=== PATIENT | male | born 2005 | race Caucasian/White ===

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

== ENCOUNTER 2023-02-16 11:36 | Emergency (ER) | payer MEDICAID, OTHER ==
[2023-02-16 11:56] VITALS: BP 141/83
--- NOTE | 2023-02-16 12:51 | ED Physician Documentation ---
History of Present Illness - Stated complaint Stated Complaint: LOWER BACK PX,BLEEDING - Chief complaint Chief Complaint: General - Additonal information Additional information: 17-year-old male presents emergency department for evaluation of a pilonidal cyst. Reports swelling began about 10 days ago, However he states that about 6 weeks ago he noticed a sore in this area. He went to a local walk-in clinic and was told he had a pilonidal cyst and was told that if it got worse to come to the ER. It was not drained. No antibiotics were initiated. States he woke up this morning and found bleeding in this area thus he presents here. No fevers. Review of Systems Skin: reports: Lesions PD PAST MEDICAL HISTORY - Past Medical History Cardiovascular: None Respiratory: Asthma Neuro: None Endocrine/Autoimmune: None GI: Chronic constipation : None HEENT: None Psych: Depression, Panic attacks Musculoskeletal: None Derm: Eczema - Past Surgical History Past Surgical History: No - Present Medications Home Medications: Ambulatory Orders Medication Instructions Recorded Confirmed Doxycycline Hyclate 100 mg PO BID #14 cap 02/16/23 Mupirocin 2% Oint [Bactroban 2% 1 applic TOP BID #22 gm 02/16/23 Oint] - Allergies Allergies/Adverse Reactions: Allergies Allergy/AdvReac Type Severity Reaction Status Date / Time tree nuts Allergy Severe Respiratory Uncoded 02/27/21 04:18 - Social History Does the pt smoke?: No Smoking Status: Never smoker Does the pt drink ETOH?: No Does the pt have substance abuse?: No - Immunizations Immunizations are current?: Yes - POLST Patient has POLST: No PD ED PE NORMAL - Respiratory Respiratory: Clear bilaterally - Abdomen Abdomen: Normal bowel sounds, Soft, Non tender, Non distended - Derm Derm: Other (Just to the left of the gluteal cleft is a raised round lesion well circumcised border with a centralized cyst appearing structure. Small amount of serous drainage. No surrounding erythema or underlying fluctuance. Lesion measures 3 mm) Results - Vitals Vitals: Vital Signs - 24 hr 02/16/23 11:41 Temperature 36.8 C Heart Rate 68 Respiratory 20 Rate Blood Pressure 141/83 H O2 Saturation 98 Oxygen O2 Source Room air PD Medical Decision Making - ED course Complexity details: d/w patient ED course: Well-appearing 17-year-old male presents emergency department for evaluation of about 6 weeks lesion just to the left of his gluteal cleft that measures about 3 mm. It is raised well-circumscribed but the central area of the lesion has an opening that is mucoid with some serous drainage. Clinically it does not appear to have abscess-like features or any evidence of surrounding cellulitis. It also is not behaving as a pilonidal cyst would. I discussed with patient that I felt a short course of antibiotics was appropriate as well as antibiotic ointment/Bactroban. If not markedly better patient may benefit from referral to dermatology for possible biopsy. Patient is agreeable to this plan. The usual emergent return precautions were discussed. Departure - Departure Disposition: Home, Self Care Clinical Impression: Skin lesion Condition: Stable Record reviewed to determine appropriate education?: Yes Prescriptions: Mupirocin 2% Oint [Bactroban 2% Oint] 1 applic TOP BID #22 gm Doxycycline Hyclate 100 mg PO BID #14 cap Comments: Juan Daniel as discussed at the bedside you do have a skin lesion just to the left of your gluteal cleft. It is not behaving in a way that pilonidal cyst typically do though it is possible that this is a very small 1. I am going to start you on a short course of antibiotics, doxycycline, that you will take twice daily for the next week. While on this antibiotic avoid sun exposure and use sunscreen when outside. I would also like you to apply the antibiotic ointment to this lesion twice daily after applying a warm compress to the lesion for 10 minutes twice daily I would expect that this starts to get better over the next several days. If not improving as anticipated or worsening you can return to the ER. However if you continue to have this small lesion that fails to heal it may benefit you to be referred to dermatology for further evaluation and possible biopsy. Therefore please discuss this ED visit with your primary care doctor as soon as possible.
== END 2023-02-16 13:04 | disposition home or self-care (01) ==
LOC: ED 11:36
DX: L98.9 Disorder of the skin and subcutaneous tissue, unspecified (principal)
CPT/HCPCS: 99282; 99283

== ENCOUNTER 2023-03-06 16:15 | Outpatient (CLI) | payer OTHER ==
[2023-03-06 21:34] LABS: BASOPHILS # (AUTO) 0.1 10^3/uL (0.0-0.1); BASOPHILS % (AUTO) 0.5 %; EOSINOPHILS # (AUTO) 0.1 10^3/uL (0.0-0.7); EOSINOPHILS % (AUTO) 1.1 %; HCT - HEMATOCRIT 47.2 % (42.0-52.0); HGB - HEMOGLOBIN 15.9 g/dL (14.0-18.0); LYMPHOCYTES # (AUTO) 2.7 10^3/uL (1.5-3.5); LYMPHOCYTES % (AUTO) 24.7 %; MEAN CORPUSCULAR HEMOGLOBIN 28.9 pg (27.0-31.0); MEAN CORPUSCULAR HGB CONC 33.7 g/dL (32.0-36.0); MEAN CORPUSCULAR VOLUME 85.8 fL (80.0-94.0); MEAN PLATELET VOLUME 11.7 fL (7.4-11.4); MONOCYTES # (AUTO) 0.7 10^3/uL (0.0-1.0); NEUTROPHILS # (AUTO) 7.3 10^3/uL (1.5-6.6); NEUTROPHILS % (AUTO) 67.4 %; PLT - PLATELET COUNT 307 10^3/uL (130-450); RED CELL DISTRIBUTION WIDTH 12.9 % (12.0-15.0); WHITE BLOOD COUNT 10.8 x10^3/uL (4.8-10.8)
[2023-03-06 21:58] LABS: THYROID STIMULATING HORMONE 0.66 uIU/mL (0.34-5.60)
[2023-03-06 21:59] LABS: ALBUMIN 4.8 g/dL (3.2-5.5); ALBUMIN/GLOBULIN RATIO 1.8 (1.0-2.2); BILIRUBIN,TOTAL 0.8 mg/dL (0.2-1.0); CALCIUM 10.4 mg/dL (8.5-10.3); POTASSIUM 3.7 mmol/L (3.5-4.5); TOTAL PROTEIN 7.5 g/dL (6.4-8.9)
[2023-03-06 22:37] LABS: TROPONIN I HIGH SENSITIVITY 3.8 ng/L (2.3-19.7)
== END 2023-03-06 16:30 | disposition home or self-care (01) ==
LOC: LAB.N 16:15
PROVIDERS: ATTEND Physician Assistant Medical
DX: R07.9 Chest pain, unspecified (principal)
CPT/HCPCS: 36415; 80053; 84443; 84484; 85025; 85379

== ENCOUNTER 2023-10-09 23:27 | Outpatient (CLI) | payer BC | END 2023-10-09 23:28 | disposition critical access hospital (66) | LOC: EMS 23:27 | DX: R10.31 Right lower quadrant pain (principal); R10.32 Left lower quadrant pain; R19.7 Diarrhea, unspecified | CPT/HCPCS: A0425; A0427 ==

== ENCOUNTER 2023-10-09 23:49 | Emergency (ER) | payer BC, OTHER ==
--- NOTE | 2023-10-10 00:57 | ED Physician Documentation ---
PD HPI ABD PAIN - Stated complaint Stated Complaint: ABD PX - Chief complaint Chief Complaint: Abd Pain - History obtained from History obtained from: Patient - Additional information Additional information: BIBA for near-syncope. Patient says he has been constipated "for past couple of days". Tonight, while straining to have BM on toilet, he had sudden onset of lightheadedness, diaphoresis, abdominal cramping, sensation that he was going to pass out. He did not lose consciousness. He called 911 and while waiting for EMS he says he checked his own pulse manually (radial artery) and he counted 14 beats/minute. He was already feeling much improved by the time EMS arrived and is asymptomatic on ED arrival. He denies h/o similar symptoms (of near-syncope; has had constipation in the past). He also no longer feels constipated, as he was able to have large bowel movement before EMS arrived. Review of Systems Constitutional: reports: Sweats. denies: Fever Cardiac: denies: Chest pain / pressure, Palpitations Respiratory: denies: Dyspnea GI: reports: Abdominal Pain (resolved), Constipation (resolved). denies: Nausea, Vomiting Neurologic: reports: Near syncope. denies: Headache, LOC PD PAST MEDICAL HISTORY - Past Medical History Cardiovascular: None Respiratory: Asthma Neuro: None Endocrine/Autoimmune: None GI: Chronic constipation : None HEENT: None Psych: Depression, Panic attacks Musculoskeletal: None Derm: Eczema - Past Surgical History Past Surgical History: No - Present Medications Home Medications: Ambulatory Orders Medication Instructions Recorded Confirmed Doxycycline Hyclate 100 mg PO BID #14 cap 02/16/23 Mupirocin 2% Oint [Bactroban 2% 1 applic TOP BID #22 gm 02/16/23 Oint] - Allergies Allergies/Adverse Reactions: Allergies Allergy/AdvReac Type Severity Reaction Status Date / Time tree nuts Allergy Severe Respiratory Uncoded 10/09/23 23:59 - Social History Does the pt smoke?: No Smoking Status: Never smoker Does the pt drink ETOH?: No Does the pt have substance abuse?: No - Immunizations Immunizations are current?: Yes - POLST Patient has POLST: No PD ED PE NORMAL - Vitals Vital signs reviewed: Yes - General General: Alert and oriented X 3, No acute distress, Well developed/nourished - HEENT HEENT: Moist mucous membranes - Cardiac Cardiac: RRR, No murmur, No gallop, No rub - Respiratory Respiratory: No respiratory distress, Clear bilaterally - Abdomen Abdomen: Normal bowel sounds, Soft, Non tender, Non distended - Neuro Neuro: Alert and oriented X 3, 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, No motor deficit, No sensory deficit, Normal speech Eye Opening: Spontaneous Motor: Obeys Commands Verbal: Oriented GCS Score: 15 Results - Vitals Vitals: Vital Signs - 24 hr 10/09/23 10/10/23 10/10/23 23:56 01:59 02:14 Temperature 36.2 C L Heart Rate 47 L 47 L 49 L Respiratory 16 16 Rate Blood Pressure 108/53 L 111/66 O2 Saturation 100 97 98 Oxygen O2 Source Room air - Labs Labs: Laboratory Tests 10/10/23 10/10/23 01:21 01:21 WBC 14.0 H RBC 5.16 Hgb 14.5 Hct 44.0 MCV 85.3 MCH 28.1 MCHC 33.0 RDW 12.8 Plt Count 260 MPV 10.3 Neut # (Auto) 10.7 H Lymph # (Auto) 2.0 [place] # (Auto) 0.9 Eos # (Auto) 0.4 Baso # (Auto) 0.1 Absolute Nucleated RBC 0.00 Nucleated RBC % 0.0 Sodium 142 Potassium 3.8 Chloride 106 Carbon Dioxide 31 Anion Gap 5.0 L BUN 14 Creatinine 0.9 Estimated GFR (MDRD) 108 Glucose 91 Calcium 9.9 PD Medical Decision Making - ED course Complexity details: reviewed results, re-evaluated patient, considered differential, d/w patient ED course: Mild leukocytosis on otherwise unremarkable CBC (WBC 14). Normal BMP. His blood pressures are towards lower end of normal range but no hypotensive readings during ED stay. Similarly, heart rate ranged from upper 40s-mid 50s but without any associated signs/symptoms. His description of symptoms in the setting of straining to have BM is highly s/o vasovagal near-syncope. He is given 1 liter NS IV (some of which had already been given HEAD CHARRER by EMS). Results d/w patient, return precautions reviewed. Departure - Departure Disposition: 01 Home, Self Care Clinical Impression: Vasovagal near-syncope Condition: Good Instructions: ED Near Syncope Vasovagal Comments: Your description of symptoms, and the circumstances under which they occur (straining to have a bowel movement while constipated) are highly suggestive of vasovagal syncope/near syncope. Information on this diagnosis is provided within these discharge sheets. There were no concerning findings on your blood tests. Vasovagal syncope is generally a benign and relatively common event. However, if you have any more episodes similar to what happened tonight, besides considering return to the emergency department, you should certainly seek follow-up with your primary care provider for reevaluation. Forms: PCP List Discharge Date/Time: 10/10/23 02:15
[2023-10-10 01:28] LABS: BASOPHILS # (AUTO) 0.1 10^3/uL (0.0-0.1); BASOPHILS % (AUTO) 0.4 %; EOSINOPHILS # (AUTO) 0.4 10^3/uL (0.0-0.7); EOSINOPHILS % (AUTO) 2.7 %; HGB - HEMOGLOBIN 14.5 g/dL (14.0-18.0); LYMPHOCYTES % (AUTO) 14.1 %; MEAN CORPUSCULAR HEMOGLOBIN 28.1 pg (27.0-31.0); MEAN CORPUSCULAR VOLUME 85.3 fL (80.0-94.0); MEAN PLATELET VOLUME 10.3 fL (7.4-11.4); MONOCYTES # (AUTO) 0.9 10^3/uL (0.0-1.0); MONOCYTES % (AUTO) 6.2 %; NEUTROPHILS # (AUTO) 10.7 10^3/uL (1.5-6.6); NEUTROPHILS % (AUTO) 76.3 %; PLT - PLATELET COUNT 260 10^3/uL (130-450); RED BLOOD COUNT 5.16 10^6/uL (4.70-6.10); RED CELL DISTRIBUTION WIDTH 12.8 % (12.0-15.0)
[2023-10-10] MEDS: SODIUM CHLORIDE 0.9% 1,000 ML IV STA (01:35)
[2023-10-10 01:43] LABS: CALCIUM 9.9 mg/dL (8.5-10.3); CREATININE 0.9 mg/dL (0.6-1.3); POTASSIUM 3.8 mmol/L (3.5-4.5)
[2023-10-10 02:22] VITALS: BP 111/66; O2SAT 98
== END 2023-10-10 02:15 | disposition home or self-care (01) ==
LOC: EDUNIT# → ED 23:49
DX: R55 Syncope and collapse (principal)
CPT/HCPCS: 36415; 80048; 85025; 99283

== ENCOUNTER 2023-11-23 13:30 | Outpatient (CLI) | payer BC ==
--- NOTE | 2023-11-23 15:14 | XRAY Report ---
PROCEDURE: Cervical Spine w/Flex/Ext 6+V INDICATIONS: CHRONIC NECK PAIN TECHNIQUE: 7 views of the cervical spine were acquired. COMPARISON: MRI cervical spine 1121. FINDINGS: Bones: No fractures or dislocations to the C7-T1 level. Mild straightening of normal cervical lordo sis. No suspicious bony lesions. There is normal range of motion between flexion and extension, with preserved normal bony alignment. Oblique images demonstrate no significant osseous neuroforaminal st enosis. Soft tissues: Prevertebral soft tissues are normal in thickness. IMPRESSION: No significant degenerative changes radiographically. Normal range of motion. Reviewed by: Castro Perez MD on 11/23/2023 3:13 PM PDT Approved by: Castro Perez MD on 11/23/2023 3:13 PM PDT Station ID: [id number]
== END 2023-11-23 13:31 | disposition home or self-care (01) ==
LOC: DI 13:30
PROVIDERS: ATTEND Physician Assistant
DX: M54.2 Cervicalgia (principal)

== ENCOUNTER 2024-01-24 17:52 | Emergency (ER) | payer BC ==
[2024-01-24 18:30] VITALS: BP 127/66; O2SAT 99
[2024-01-24 18:46] LABS: BASOPHILS # (AUTO) 0.1 10^3/uL (0.0-0.1); BASOPHILS % (AUTO) 0.5 %; EOSINOPHILS # (AUTO) 0.3 10^3/uL (0.0-0.7); EOSINOPHILS % (AUTO) 3.4 %; HCT - HEMATOCRIT 44.7 % (42.0-52.0); LYMPHOCYTES # (AUTO) 2.3 10^3/uL (1.5-3.5); LYMPHOCYTES % (AUTO) 24.1 %; MEAN CORPUSCULAR HEMOGLOBIN 28.7 pg (27.0-31.0); MEAN CORPUSCULAR HGB CONC 33.6 g/dL (32.0-36.0); MEAN CORPUSCULAR VOLUME 85.5 fL (80.0-94.0); MEAN PLATELET VOLUME 10.1 fL (7.4-11.4); MONOCYTES # (AUTO) 0.7 10^3/uL (0.0-1.0); MONOCYTES % (AUTO) 6.9 %; NEUTROPHILS # (AUTO) 6.1 10^3/uL (1.5-6.6); NEUTROPHILS % (AUTO) 64.5 %; PLT - PLATELET COUNT 285 10^3/uL (130-450); RED BLOOD COUNT 5.23 10^6/uL (4.70-6.10); RED CELL DISTRIBUTION WIDTH 13.2 % (12.0-15.0); WHITE BLOOD COUNT 9.5 x10^3/uL (4.8-10.8)
[2024-01-24 19:00] LABS: ALBUMIN 4.6 g/dL (3.2-5.5); ALBUMIN/GLOBULIN RATIO 1.8 (1.0-2.2); BILIRUBIN,TOTAL 0.4 mg/dL (0.2-1.0); CALCIUM 9.4 mg/dL (8.5-10.3); CREATININE 1.2 mg/dL (0.6-1.3); POTASSIUM 3.8 mmol/L (3.5-4.5); TOTAL PROTEIN 7.1 g/dL (6.4-8.9)
--- NOTE | 2024-01-24 20:57 | ED Physician Documentation ---
PD HPI ABD PAIN - Stated complaint Stated Complaint: SHAKY/BLOATING - Chief complaint Chief Complaint: Abd Pain - Additional information Additional information: 18-year-old male with history of asthma, chronic constipation, depression, anxiety, panic attacks, and syncopal episode presents emergency department for generalized abdominal pain. Patient says that he went to go have a bowel movement and started to feel near syncopal symptoms he did not pass out or lose consciousness said that he started to get diaphoretic and shaky and did not end up having a bowel movement because he was feeling quite anxious and nervous because of the near syncopal episode. Patient states last bowel movement was yesterday it was normal. When I offered a CT scan patient says that he just wants his urine checked. PD PAST MEDICAL HISTORY - Past Medical History Cardiovascular: None Respiratory: Asthma Neuro: None Endocrine/Autoimmune: None GI: Chronic constipation : None HEENT: None Psych: Depression, Panic attacks Musculoskeletal: None Derm: Eczema - Past Surgical History Past Surgical History: No - Present Medications Home Medications: Ambulatory Orders Medication Instructions Recorded Confirmed No Known Home Medications 01/24/24 01/24/24 - Allergies Allergies/Adverse Reactions: Allergies Allergy/AdvReac Type Severity Reaction Status Date / Time tree nuts Allergy Severe Respiratory Uncoded 01/24/24 18:24 - Social History Does the pt smoke?: No Smoking Status: Never smoker Does the pt drink ETOH?: No Does the pt have substance abuse?: No - Immunizations Immunizations are current?: Yes - POLST Patient has POLST: No PD ED PE NORMAL - Vitals Vital signs reviewed: Yes - General General: Alert and oriented X 3, No acute distress, Well developed/nourished - Abdomen Abdomen: Normal bowel sounds, Soft, Non tender, Non distended, No organomegaly - Back Back: No CVA TTP, No spinal TTP - Derm Derm: Normal color, Warm and dry, No rash - Extremities Extremities: No deformity Results - Vitals Vitals: Vital Signs - 24 hr 01/24/24 18:17 Temperature 36.4 C L Heart Rate 59 L Respiratory 16 Rate Blood Pressure 127/66 O2 Saturation 99 Oxygen O2 Source Room air - Labs Labs: Laboratory Tests 01/24/24 01/24/24 18:40 18:40 WBC 9.5 RBC 5.23 Hgb 15.0 Hct 44.7 MCV 85.5 MCH 28.7 MCHC 33.6 RDW 13.2 Plt Count 285 MPV 10.1 Neut # (Auto) 6.1 Lymph # (Auto) 2.3 [place] # (Auto) 0.7 Eos # (Auto) 0.3 Baso # (Auto) 0.1 Absolute Nucleated RBC 0.00 Nucleated RBC % 0.0 Sodium 139 Potassium 3.8 Chloride 102 Carbon Dioxide 30 Anion Gap 7.0 BUN 24 H Creatinine 1.2 Estimated GFR (MDRD) 77 L Glucose 82 Calcium 9.4 Total Bilirubin 0.4 AST 27 ALT 24 Alkaline Phosphatase 70 Total Protein 7.1 Albumin 4.6 Globulin 2.5 Albumin/Globulin Ratio 1.8 Lipase 17 PD Medical Decision Making - ED course ED course: 18-year-old male presents emergency department for abdominal pain and descriptions of near syncopal episode. Patient denies any symptoms at this point in time no abdominal pain. We have completed some basic labs there is no leukocytosis no electrolyte abnormalities, normal kidney function no other findings. We have discussed possibly doing an abdominal CT scan but patient said that he did not want a CT scan he just wanted his urine checked but we informed him that it is very unlikely that he has a urinary tract infection and not necessarily warranted given the symptoms that he is experiencing no dysuria no flank pain. Patient says he has a echocardiogram tomorrow for these near syncopal episodes that he has been experiencing at home and would like to just pursue this at this point in time does not want any further workup is safe to discharge home return precautions given. Departure - Departure Disposition: 01 Home, Self Care Clinical Impression: Abdominal bloating Instructions: Abdominal Pain Comments: Thank you for trusting us with your care. We offered CT scan you kindly declined your labs are unremarkable you have an appointment for an echo tomorrow make sure that you do not miss this. Please come back if your abdominal pain gets any worse he started to develop any nausea vomiting fevers or chills or any other concerning emergent symptoms. Wishing you a speedy recovery. Forms: PCP List Discharge Date/Time: 01/24/24 21:19
== END 2024-01-24 21:19 | disposition home or self-care (01) ==
LOC: ED 17:52
DX: R14.0 Abdominal distension (gaseous) (principal); R55 Syncope and collapse
CPT/HCPCS: 36415; 80053; 83690; 85025; 99283

== ENCOUNTER 2024-01-25 07:44 | Outpatient (CLI) | payer BC | END 2024-01-25 07:45 | disposition home or self-care (01) | LOC: DI 07:44 | PROVIDERS: ATTEND Physician Assistant | DX: R07.9 Chest pain, unspecified (principal) | CPT/HCPCS: 93307 ==